=== PATIENT | female | born 2000 | race African-American/Black ===

== ENCOUNTER 2021-09-20 11:38 | Emergency (ER) | payer SELFPAY ==
[2021-09-20 12:31] LABS: Bilirubin Neg (Negative); Blood, Urine 250 (Negative); Clarity Cloudy (Clear); Glucose, Urine (Dipstick) Normal (Negative); Ketone, Urine Negative (Negative); Leukocyte 100 (Negative); Nitrite Positive (Negative); Protein, Urine (Dipstick) 15 mg/dl (Neg-Trace); Urobilinogen Normal mg/dL (Less than 2)
[2021-09-20 12:39] LABS: Bacteria/HPF 3+ HPF (None Seen)
[2021-09-20 12:40] LABS: Mucous/LPF 1+ LPF (<2+); RBC/HPF 21-50 HPF (0-3)
[2021-09-20] MEDS ORDERED: Ketorolac Tromethamine 30 MG/ML VIAL ONE (14:02)
== END 2021-09-20 14:36 | disposition home or self-care (01) ==
LOC: CSHERS 11:38
DX: O02.1 Missed abortion (principal); O08.83 Urinary tract infection following an ectopic and molar pregnancy; N39.0 Urinary tract infection, site not specified; Z3A.01 Less than 8 weeks gestation of pregnancy
CPT/HCPCS: 81003; 81015; 84702; 96372; 99284; J1885